=== PATIENT | male | born 1940 | race Caucasian/White ===

== ENCOUNTER → 2021-08-23 | Outpatient (CLI) | payer MEDICARE, OTHER ==
--- NOTE | 2021-08-23 12:01 | KCIC ---
Bilateral lower extremity arterial duplex ultrasound study without comparison for decreased pulses in the feet, claudication, history of smoking for 20 years, hypertension, diabetes. Technique and findings: Real-time grayscale and color and spectral Doppler evaluation of the arteries of lower extremity is performed. There is bulky calcified atherosclerosis in virtually all distribut ions. On the right, there mildly elevated velocity within the common femoral artery, which is morphol ogically abnormal but biphasic. There is monophasic parvus tardus flow within the mid SFA. Flow remai ns monophasic throughout the remainder of the right lower extremity. On the left, there is once again elevated velocity within the common femoral artery with bulky calcified atherosclerosis, but biphasi c flow. Flow is biphasic throughout the SFA and popliteal artery, as well as involving the posterior tibial, peroneal, anterior tibial, and dorsalis pedis arteries. There is spectral broadening in many distributions however. No areas of velocity elevation to meet criteria for definite hemodynamically s ignificant focal stenosis. IMPRESSION: 1. Bulky calcified atherosclerosis bilaterally in virtually all distributions. There is a definite he modynamically significant stenosis on the right above the mid SFA, likely within the common femoral a nd/or proximal superficial femoral artery. Some degree of iliac stenosis may be present as well. On t he left, there are borderline velocity elevations within the common femoral and superficial femoral a rtery. This patient could likely benefit from angiography and attempted endovascular reconstruction by an en dovascular specialist. If so desired, we would be happy to see him in our IR clinic in this regard. R eferral can be made by faxing written order to [phone]. Electronically signed by: Valente Barahona MD (08/23/2021 11:59 AM) [id number]
== END ==
LOC: KCIC US 09:44
PROVIDERS: ATTEND Family Medicine
DX: I70.201 Unspecified atherosclerosis of native arteries of extremities, right leg (principal); R09.89 Other specified symptoms and signs involving the circulatory and respiratory systems
CPT/HCPCS: 93925